=== PATIENT | female | born 1955 | race Caucasian/White ===

== ENCOUNTER → 2018-08-08 | Outpatient (CLI) | payer OTHER ==
[2018-08-08] VITALS (9 sets, daily range): BP systolic 106–178; BP diastolic 1–74
[~2018-08-08] VITALS: Ht 162.6 cm; Wt 106.6 kg
[~2018-08-08] MED LIST: CHOL10003 PO; COCO1000 PO; CONTRAST GIVEN. MC PRN; ESCITALOPRAM OX10 MG PO; EZET10TA18 PO; HEPARIN for ARTERIAL LINE 1,500 ML ONE; HEPARIN for IV BOLUS 10,000 UNIT/10 ML VIAL. IART ONE; HEPARIN for IV BOLUS 10,000 UNIT/10 ML VIAL. ONE; IODIXANOL 320 MG/ML 100 ML VIAL. IART ONE; IODIXANOL 320 MG/ML 100 ML VIAL. ONE; LIDOCAINE 1% PF 2 ML VIAL. INJ ONE; LIDOCAINE 1% PF 2 ML VIAL. ONE; MIDAZOLAM HCL/PF 2 MG/2 ML VIAL. IV ONE; MIDAZOLAM HCL/PF 2 MG/2 ML VIAL. ONE; NITROGLYCERIN 200 MCG/2 ML SYRINGE FOR CATH/VASC LAB. IART ONE; NITROGLYCERIN 200 MCG/2 ML SYRINGE FOR CATH/VASC LAB. ONE; VERAPAMIL 5 MG/2 ML VIAL. IART ONE; VERAPAMIL 5 MG/2 ML VIAL. ONE; fentaNYL PF VIAL 100 MCG/2 ML VIAL IV ONE; fentaNYL PF VIAL 100 MCG/2 ML VIAL ONE
[2018-08-08 08:52] LABS: HEMATOCRIT 45.6 % (36.0-47.0); HEMOGLOBIN 15.9 g/dL (12.0-15.5); RED BLOOD COUNT 5.04 x10^6/uL (3.50-5.40); RED CELL DISTRIBUTION WIDTH 12.9 % (11.5-14.5); WHITE BLOOD COUNT 7.2 x10^3/uL (4.0-11.0)
[2018-08-08 09:17] LABS: CALCIUM 9.2 mg/dL (8.5-10.1); CREATININE 0.8 mg/dL (0.6-1.0); GFR 72.9; POTASSIUM 4.1 mmol/L (3.5-5.1); PROTHROMBIN TIME PATIENT 12.6 SEC (11.7-14.0)
--- NOTE | 2018-08-08 10:40 | CARD ---
MR#: [id number] Date of Study: 08/08/2018 Ordering Physician: TAYLER GARCIA, Referring Physician: TAYLER GARCIA, Tech: Fior Stroud RTR APPROVED REPORT Technologist: Fior Stroud RTR Nurse: Delia Rendon RN Procedure(s) performed: Moderate Sedation time: 23 minutes [facility], Coronary angiography HISTORY The patient is a 62 year-old female with a history of : hypertension, dyslipidemia. INDICATION The indication(s) include : stable angina , dyspnea. PROCEDURE NARRATIVE INFORMED CONSENT: After explaining the risks and benefits of the procedure and alternatives, informed consent was obtained. The patient was brought electively to the cardiac catheterization lab. A timeout was performed confi rming the patient's name, date of , procedure, and site of procedure. All necessary personnel w ere wearing the appropriate protective equipment and radiation monitor devices. (See nursing notes for medications administered). ACCESS: The right wrist was sterilely prepped and draped in the usual fashion. The right wrist was infiltrat ed with 1 mL of 2% lidocaine for subcutaneous anesthesia. A 6 Vietnamese Terumo glide sheath was inserte d into the right radial artery without difficulty. CORONARY ANGIOGRAPHY: Right and left coronary angiography was performed using a 6Fr TIG 4.0 catheter. Left ventricular en d diastolic pressure was obtained with a TIG catheter and pullback was performed after left ventricul ography. All catheter exchanges and advancements were performed over a guidewire. CLOSURE: At case completion the right radial sheath was removed and a Terumo radial band was applied with 13 m l of air. COMPLICATIONS: The patient tolerated the procedure well and there were no immediate complications. FINDINGS: HEMODYNAMICS: LVEDP 8 mm Hg No gradient on LV to aortic pullback. AO: 128/78 LEFT VENTRICULOGRAM: EF 55% Anterobasal: Normal. Anterolateral: Normal Apical: Normal Diaphragmatic: Normal Posterobasal: Normal CORONARY ANGIOGRAPHY: LM is a large caliber vessel with normal angiographic appearance. LAD is a large caliber vessel with a mid 30% stenosis. Ramus is a moderate caliber vessel with normal angiographic apeparance. LCx is a large caliber dominant vessel with proximal 30% stenosis. OM1 is a moderate caliber vessel with normal angiographic appearance. LPDA is a moderate caliber vessel with normal angiographic appearance. RCA is a small caliber non-dominant vessel with normal angiographic appearance. Conclusion 1. Mild non-obstructive coronary disease. 2. Normal LV function. Recommendations Aggressive Medical Therapy Signed by : Tayler Garcia, Electronically Approved : 08/08/2018 10:40:13
== END | disposition home or self-care (01) ==
LOC: CCL 08:14
PROVIDERS: ATTEND Internal Medicine Cardiovascular Disease
DX: I25.118 Atherosclerotic heart disease of native coronary artery with other forms of angina pectoris (principal); I10 Essential (primary) hypertension; E78.5 Hyperlipidemia, unspecified; Z91.030 Bee allergy status
CPT/HCPCS: 36415; 80048; 85027; 85610; 93458; 99152; 99153; C1769; C1892; J1644; J2250; J3010; J3490; Q9967

== ENCOUNTER → 2020-08-05 | Outpatient (CLI) | payer OTHER ==
[2018-08-08 12:20] VITALS: BP 122/66
[~2020-08-05] MED LIST changes: -CONTRAST GIVEN. MC PRN; -EZET10TA18 PO; +EZET10TA20 PO; -HEPARIN for ARTERIAL LINE 1,500 ML ONE; -HEPARIN for IV BOLUS 10,000 UNIT/10 ML VIAL. IART ONE; -HEPARIN for IV BOLUS 10,000 UNIT/10 ML VIAL. ONE; -IODIXANOL 320 MG/ML 100 ML VIAL. IART ONE; -IODIXANOL 320 MG/ML 100 ML VIAL. ONE; -LIDOCAINE 1% PF 2 ML VIAL. INJ ONE; -LIDOCAINE 1% PF 2 ML VIAL. ONE; -MIDAZOLAM HCL/PF 2 MG/2 ML VIAL. IV ONE; -MIDAZOLAM HCL/PF 2 MG/2 ML VIAL. ONE; -NITROGLYCERIN 200 MCG/2 ML SYRINGE FOR CATH/VASC LAB. IART ONE; -NITROGLYCERIN 200 MCG/2 ML SYRINGE FOR CATH/VASC LAB. ONE; -VERAPAMIL 5 MG/2 ML VIAL. IART ONE; -VERAPAMIL 5 MG/2 ML VIAL. ONE; -fentaNYL PF VIAL 100 MCG/2 ML VIAL IV ONE; -fentaNYL PF VIAL 100 MCG/2 ML VIAL ONE
--- NOTE | 2020-08-05 13:45 | KCIC ---
EXAM: MRI RIGHT KNEE DATE: 08/05/2020 10:41 AM CLINICAL INDICATION: RIGHT KNEE PAIN -right knee pain around patella since a jump 5 days ago. COMPARISON: None. TECHNIQUE: Multiplanar, multisequence MRI of the right knee was performed without contrast. FINDINGS: Small right knee joint effusion. Small Umana's cyst. Small synovial cyst arising from the popliteus hiatus. ACL and PCL are intact. Mild increased signal about the MCL consistent with low-grade strain or reactive change. Fibular collateral ligament, biceps femoris, IT band and popliteus are intact, normal in signal and morphology. Extensor mechanism is intact. Essentially neutral patellar tracking. Medial meniscus: There is free edge blunting of the body to the posterior horn consistent with radial tear. Lateral meniscus: Intact A 2 cm segment of full-thickness defect is seen at the radial aspect of the medial femoral condyle with associated subchondral edema. Associated chondromalacia and subchondral edema is also seen at the medial tibial plateau. Tricompartmental osteophytes are seen. High-grade chondral thinning of the medial patellar facet without subchondral edema. Suprapatellar fat pad edema may be seen with anterior knee pain/impingement. IMPRESSION: 1. Right knee joint osteoarthritis with medial compartment chondral effacement, subchondral edema and tricompartmental osteophytes. 2. Radial type tear body-posterior horn medial meniscus. 3. Suprapatellar fat pad edema may be seen with anterior knee pain/impingement. 4. Small Umana's cyst. Small synovial cyst arising from the popliteus hiatus. Electronically signed by: Arcadio Butt MD (08/05/2020 1:42 PM) [id number]
== END ==
LOC: KCIC MRI 09:44
PROVIDERS: ATTEND Family Medicine
DX: M17.11 Unilateral primary osteoarthritis, right knee (principal); M71.38 Other bursal cyst, other site; M71.21 Synovial cyst of popliteal space [Baker], right knee; M25.461 Effusion, right knee
CPT/HCPCS: 73721

== ENCOUNTER → 2021-12-19 | Outpatient (CLI) | payer MEDICARE, OTHER ==
[2018-08-08 12:20] VITALS: BP 122/66
--- NOTE | 2021-12-19 11:05 | RAD ---
XR BONE LENGTH History: Right knee osteoarthritis. Comparison: 08/16/2020 Technique: AP views of the right lower extremity from hip to ankle obtained with markers in place. Findings: Measurements made in the vertical axis from the femoral head to the medial femoral condyle and medial femoral condyle to the tibial plafond and. Right femur length: 54.0 cm. Right tibia length: 39.3 cm. Right lower extremity hip to ankle: 93.3 cm. Severe medial tibiofemoral compartment joint space narrowing. Medial and lateral compartment osteophy te formation. Mild degenerative changes at the right hip. Several pelvic surgical clips. Impression: 1. Degenerative changes of the right knee greatest at the medial tibiofemoral compartment. 2. Leg lengths as above. Electronically signed by: Jim Reis MD (12/19/2021 11:03 AM) [id number]
--- NOTE | 2021-12-19 11:58 | RAD ---
Exam Date: 12/19/2021 8:30 AM MRI RIGHT LOWER EXTREMITY JOINT WITHOUT Indication: Reason: oesteoarthritis of right knee / Spl. Instructions: Jones [employer] Nephew Carmenza campos otocol / History: . TECHNIQUE: A single proton density nonfat saturated sagittal series of the knee is submitted for revi ew. FINDINGS: Evaluation is limited due to only a single series provided. Complex tearing is seen involving the posterior horn of the medial meniscus. Lateral meniscus is wit hout appreciable focal abnormality. The anterior cruciate ligament, posterior cruciate ligament, and patellofemoral extensor mechanism ar e without appreciable focal abnormality. Full-thickness chondral loss is seen in the medial compartment. Partial thickness chondral loss is s een in the patellofemoral compartment. No chondral loss is appreciated in the lateral compartment. Moderate osteophytes are noted. Physiologic joint fluid is noted. IMPRESSION: Single series limits evaluation. Complex tearing of the medial meniscus noted, with full-thickness chondral loss in the medial compart ment. Images are submitted for orthopedic review. Electronically signed by: Nilo Norman MD (12/19/2021 11:56 AM) [id number]
== END ==
LOC: MRI 07:57
PROVIDERS: ATTEND Orthopaedic Surgery
DX: S83.231A Complex tear of medial meniscus, current injury, right knee, initial encounter (principal); M17.11 Unilateral primary osteoarthritis, right knee; M16.11 Unilateral primary osteoarthritis, right hip; M25.761 Osteophyte, right knee; M25.861 Other specified joint disorders, right knee; X58.XXXA Exposure to other specified factors, initial encounter; Y93.89 Activity, other specified; Y92.89 Other specified places as the place of occurrence of the external cause; Y99.8 Other external cause status
CPT/HCPCS: 73721; 77073

== ENCOUNTER → 2022-01-16 | Outpatient (CLI) | payer MEDICARE, OTHER ==
[~2022-01-16] MED LIST changes: +ASPI325T11 PO; +ASPI325T8 PO; +CHOL100014 PO; +CHRO1000 PO; +CIDE600C PO; +CINN500C2 PO; +ELDE1CAP PO; +FERR325T14 PO; +FURO20TA3 PO; +HAWT565C PO; +IBUP1TAB12 PO; +LISI20TA18 PO; +MULT-121 PO; +OXYC5TAB4 PO; +TURM500C4 PO; +VITA1TAB19 PO; +[UNRECOGNIZED DRUG - OTHER] PO
[2022-01-16 09:49] LABS: BASO # 0.1 x10^3/uL (0.0-0.2); BASO % 1 % (0-3); EOS # 0.3 x10^3/uL (0.0-0.7); EOS % 4 % (0-3); HEMATOCRIT 46.8 % (36.0-47.0); HEMOGLOBIN 15.3 g/dL (12.0-15.5); LYMPH # 1.5 x10^3/uL (1.0-4.8); LYMPH % 20 % (24-48); MEAN CORPUSCULAR HEMOGLOBIN 30 pg (25-35); MEAN CORPUSCULAR HGB CONC 33 g/dL (31-37); MEAN CORPUSCULAR VOLUME 91 fL (79-100); MONO # 0.7 x10^3/uL (0.0-1.1); MONO % 9 % (0-9); NEUT # 4.9 x10^3/uL (1.8-7.7); NEUT % 66 % (31-73); PLATELET COUNT 289 x10^3/uL (140-400); RED BLOOD COUNT 5.16 x10^6/uL (3.50-5.40); RED CELL DISTRIBUTION WIDTH 13.2 % (11.5-14.5); WHITE BLOOD COUNT 7.4 x10^3/uL (4.0-11.0)
[2022-01-16 10:04] LABS: CALCIUM 9.2 mg/dL (8.5-10.1); CREATININE 0.7 mg/dL (0.6-1.0); POTASSIUM 4.2 mmol/L (3.5-5.1)
[2022-01-17 05:14] LABS: HEMOGLOBIN A1C 6.7 % (4.8-5.6)
== END ==
LOC: SURGPAT 08:00
PROVIDERS: ATTEND Orthopaedic Surgery
DX: Z01.812 Encounter for preprocedural laboratory examination (principal); M17.11 Unilateral primary osteoarthritis, right knee
CPT/HCPCS: 36415; 80048; 82040; 82306; 83036; 85025; 85610; 85651; 85730; 87641

== ENCOUNTER → 2022-01-27 | Outpatient (CLI) | payer MEDICARE, OTHER ==
[2022-01-18 10:27] VITALS: BP 120/77
== END ==
LOC: LAB 10:00
PROVIDERS: ATTEND Orthopaedic Surgery
DX: Z01.812 Encounter for preprocedural laboratory examination (principal); Z20.822 Contact with and (suspected) exposure to COVID-19
CPT/HCPCS: U0003

== ENCOUNTER 2022-01-30 05:58 | Inpatient (IN) | payer MEDICARE, OTHER ==
[2022-01-18 10:27] VITALS: BP 120/77
[~2022-01-30] VITALS: Ht 162.6 cm; Wt 109.0 kg
[~2022-01-30 05:58] MED LIST changes: -ASPI325T11 PO; -OXYC5TAB4 PO
[2022-01-30] MEDS ORDERED: ACETAMINOPHEN 500 MG TABLET PO PRN (06:00)
[2022-01-30] MEDS ORDERED: MELOXICAM 7.5 MG TABLET PO PRN (06:00)
[2022-01-30] MEDS ORDERED: GABAPENTIN 300 MG CAPSULE. PO PRN (06:00)
[2022-01-30] MEDS ORDERED: TV=62ml MORPHINE 5 MG, KETOROLAC 30 MG, ROPIV, EPI INT ART ONE (06:00)
[2022-01-30] MEDS ORDERED: TRANEXAMIC ACID 1,000 MG in IV NS 50ML -- 1ST BAG INJ ONE (06:00)
[2022-01-30 06:22] VITALS: BP 132/63
[2022-01-30] MEDS ORDERED: ONDANSETRON PF 4 MG/2 ML VIAL. ONE (06:25)
[2022-01-30] MEDS ORDERED: DEXAMETHASONE SOD PHOS 4 MG/ML VIAL ONE (06:25)
[2022-01-30] MEDS ORDERED: LIDOCAINE 2% PF 5 ML VIAL. ONE (06:25)
[2022-01-30] MEDS ORDERED: PROPOFOL 10 MG/ML (20ML) VIAL. IV ONE (06:25)
[2022-01-30] MEDS ORDERED: TRANEXAMIC ACID in NS IVPB 100 ML ONE (07:09)
[2022-01-30] MEDS ORDERED: fentaNYL PF VIAL 250 MCG/5 ML VIAL ONE (07:30)
[2022-01-30] MEDS ORDERED: TRANEXAMIC ACID 1,000 MG in IV NS 50ML -- 2ND BAG INJ ONE (08:00)
[2022-01-30] MEDS ORDERED: fentaNYL PF VIAL 100 MCG/2 ML VIAL IVP PRN ×3 (08:15→10:30)
[2022-01-30] MEDS ORDERED: diphenhydrAMINE 50 MG/ML VIAL IVP PRN (08:15)
[2022-01-30] MEDS ORDERED: CALCIUM CARBONATE 500 MG TAB.CHEW PO PRN (08:15)
[2022-01-30] MEDS ORDERED: METOCLOPRAMIDE HCL 10 MG/2 ML VIAL. IVP PRN (08:15)
[2022-01-30] MEDS ORDERED: ZOLPIDEM 5 MG TABLET. PO PRN (08:15)
[2022-01-30] MEDS ORDERED: 0.9 % SODIUM CHLORIDE 10 ML DISP.SYRIN. IV PRN (08:15)
[2022-01-30] MEDS ORDERED: IV DEXTROSE 5% 250 ML BAG. IV PRN (08:15)
[2022-01-30] MEDS ORDERED: IV NORMAL SALINE 1000ML BAG 1,000 ML IV SCH (08:15)
[2022-01-30] MEDS ORDERED: PROCHLORPERAZINE 5 MG TABLET. PO PRN (08:15)
[2022-01-30] MEDS ORDERED: DEXTROSE 50% 25 GM / 50ML DISP.SYRIN. IV PRN (08:15)
[2022-01-30] MEDS: SENNOSIDES/DOCUSATE 8.6/50MG TABLET. PO SCH (09:00)
[2022-01-30] MEDS: MULTIVITAMIN with MINERAL TABLET. PO SCH (09:00)
[2022-01-30] MEDS ORDERED: SEVOFLURANE > 120 MINUTES. IH ONE (09:10)
--- NOTE | 2022-01-30 09:54 | HP ---
DATE OF SERVICE: 01/30/2022 ADMIT DATE: 01/30/2022 She is here preoperatively. BRIEF HISTORY: The patient is a 66-year-old female here today with complaints of continued and ongoing right knee pain. She has undergone multiple treatments for this including injections, ice, elevation, anti-inflammatories, modifying activities and therapies, etc. Nothing is helping significantly. Therefore, at this point, she wishes to undergo a total knee arthroplasty. No other complaints today. PAST MEDICAL HISTORY: Remarkable for hyperlipidemia as well as coronary artery disease. Also, renal calculi, cervical degenerative joint disease, obesity. PAST SURGICAL HISTORY: Lithotripsy as well as cholecystectomy and appendectomy. FAMILY HISTORY: Remarkable for cardiac disease as well as COPD. SOCIAL HISTORY: The patient has not used tobacco in the last 10 years. Denies any alcohol use at all at this point. She is retired at this point. She is . ALLERGIES: HER MEDICATION ALLERGIES ARE NICKEL. MEDICATIONS: Multiple, vitamins as well as furosemide, occasional use of hydrocodone, atorvastatin as well as occasional use of an antibiotic for the renal issues. PHYSICAL EXAMINATION: GENERAL: She is alert and oriented x 3. She is answering questions appropriately today. HEENT: Within normal limits. No abnormalities noted at this point. HEART: Regular rate and rhythm with no murmurs. No issues at this point. LUNGS: Clear to auscultation in all ware. SKIN: Intact without any lesions or rashes. EXTREMITIES: The exam of the knee reveals there to be a mild effusion. Range of motion is 0 up to 115 degrees of flexion. A lot of apprehension of the patellofemoral joint, pain with palpation both medial and lateral joint lines with positive Apley's test in the medial and lateral compartments. No instability in the varus, valgus or AP plane at this point. No atrophy of musculature. Distal neurovascular status appears to be fully intact at this point. No other abnormalities are noted at this point. IMPRESSION: Degenerative joint disease, right knee. History of cardiac disease. PLAN: At this time, she has already been cleared by her physicians. At this point for right total knee arthroplasty, she will be evaluated by Anesthesia and then we will proceed with a right total knee replacement. She understands the risks, complications as well as benefits and expectations of that surgery, postoperative protocol and followup. RAMONITA/BRITTNEY/NEIL DR: Mary TID: [id number]
[2022-01-30] MEDS ORDERED: HYDROmorphone 2 MG/ML INJ. ONE (10:11)
[2022-01-30] MEDS: HYDROmorphone 2 MG/ML INJ. IVP PRN ×4 (10:23→11:34)
[2022-01-30] MEDS ORDERED: IV RINGERS,LACTATED 1000ML 1,000 ML IV SCH (10:30)
[2022-01-30] MEDS ORDERED: PROCHLORPERAZINE 10 MG/2 ML VIAL. IVP PRN (10:30)
[2022-01-30] MEDS ORDERED: MORPHINE SULFATE 2 MG/ML INJ. IVP PRN (10:30)
--- NOTE | 2022-01-30 10:49 | RAD ---
Exam: XR KNEE_RT 1-2 VIEWS History: Postop knee arthroplasty. Comparison: 12/19/2021 Findings: There are postsurgical features from right total knee arthroplasty. Distal femur and proximal tibial components appear well seated without evidence of complication. Normal alignment. No fractures identi fied. There are postsurgical changes to the articular side of the patella. Subcutaneous and intra-art icular air and edema consistent with recent instrumentation. Impression: 1. Right total knee arthroplasty without evidence of complication. Electronically signed by: Jim Reis MD (01/30/2022 10:46 AM) [id number]
--- NOTE | 2022-01-30 11:01 | OP ---
DATE OF SURGERY: 01/30/2022 PREOPERATIVE DIAGNOSIS: Severe degenerative joint disease, right knee. POSTOPERATIVE DIAGNOSIS: Severe degenerative joint disease, right knee. PROCEDURE: Right total knee arthroplasty. SURGEON: Dc Rebollar Jr, DO GLOVE MAKER: DENZEL [place] COMPONENTS: Size 4 tibia, size 5 femur, 32 patella and this is a Jones and Nephew total knee replacement. DESCRIPTION OF PROCEDURE: The patient was taken to the operative suite, given a general anesthetic. Right lower extremity was then prepped and draped in a sterile fashion. After exsanguination, tourniquet was inflated. Incision was made through skin and subcutaneous tissues down to the extensor mechanism. Superficial bleeding was coagulated using Bovie knife. Upon medial parapatellar incision, the patella was everted, measured and cut to the appropriate size. There were noted to be severe changes in all compartments of the knee. Soft tissue was released from the proximal tibia due to a slight contracture along the area of the medial capsule. Following this, after the patella was cut, 32 was most appropriate size; therefore, the drill was placed through the drill guide for positioning and the trial poly was placed. The knee was then taken into a flexed position. Retractors were placed medially and laterally and the guide was then affixed to the distal femur, held with pins, 2 anteriorly and 2 distally. The distal pins were then removed and the cut was made on the distal femur. This was noted to be a good flush cut. The trial was then removed. The cutting guide was then placed on the distal femur using the previous drill pins on the distal femur for rotation along the axis. After this was fixed, the anterior, posterior and the chamfer cuts were then made. This guide was then removed in its entirety and medial and lateral meniscal remnants were removed. The PCL was stable. The ACL was removed. After retractors were placed medially, laterally and posteriorly, the tibial guide was then placed in appropriate position and the tibia was cut. The trials were then placed. This was taken through range of motion. This was very tight in both flexion and extension, but were equal. Therefore, after the guide was placed back, 2 more millimeters were cut off the tibia and then the trials were placed again and this was noted to have excellent rotation, full extension, flexion up to 125 degrees of flexion without any instability or subluxation. Proper tracking in the patellofemoral joint was noted at this point. Therefore, the drill was placed through the femoral component for positioning of the femur. Osteophytes were then subsequently removed from the femoral side of the joint. The same was done on the tibial side of the joint. This was marked for rotation and then the drill and the guide were placed for the keel on the tibia. The capsule was then Bovied and the capsule was noted to be in good position and then following this, this was thoroughly irrigated. Cement was then mixed on the back table. Cement was placed on cut surfaces. Tibia was impacted first, followed by the femur. This was held in extension with a 9 mm poly. After this was noted to be stable, this hardening of cement was noted and after this, excess cement was removed. The trial was then subsequently removed. The actual poly was placed. This was noted to be very stable and secured within the tibial component. This was taken through full range of motion again with excellent stability in the AP plane as well as varus and valgus plane with proper tracking. The medial parapatellar was then closed in a running fashion and also reinforced along the area of the vastus medialis region. Through range of motion, this was noted to be stable and secured and tracking appropriately. Tourniquet was deflated prior to complete closure. There was no excessive bleeding noted at that point and that had been irrigated prior to closure with the use of Betadine. At the end of that, the capsule was infiltrated with local, superficial tissue and skin was reapproximated. Sterile dressing was applied. The patient was then taken from the operative bed to the postoperative bed, taken to the PACU in stable condition. BOB/NEGRO DR: Mary TID: [id number]
[2022-01-30] MEDS: ONDANSETRON ODT 4 MG TAB.RAPDIS. PO SCH ×2 (12:00→21:44)
[2022-01-30] MEDS: ONDANSETRON PF 4 MG/2 ML VIAL. IVP SCH ×2 (13:27→16:43)
[2022-01-30] MEDS: MORPHINE SULFATE 2 MG/ML INJ. IVP PRN ×2 (13:28→16:37)
[2022-01-30] MEDS: HYDROcodone/APAP 5/325MG 1 TAB TABLET PO PRN ×2 (17:23→21:43)
[2022-01-30 19:00] VITALS: BP 117/55
[2022-01-30 23:00] VITALS: BP 116/63
[2022-01-31] VITALS (7 sets, daily range): BP systolic 102–148; BP diastolic 55–66
[2022-01-31] MEDS: HYDROcodone/APAP 5/325MG 1 TAB TABLET PO PRN (02:52)
[2022-01-31] MEDS: ONDANSETRON PF 4 MG/2 ML VIAL. IVP SCH ×2 (05:13)
[2022-01-31] MEDS: traMADol 50 MG TABLET PO SCH ×3 (05:55→17:47)
[2022-01-31] MEDS: GABAPENTIN 100 MG CAPSULE. PO SCH ×3 (05:55→22:18)
[2022-01-31] MEDS: ONDANSETRON ODT 4 MG TAB.RAPDIS. PO SCH ×2 (05:56)
[2022-01-31] MEDS ORDERED: MAGNESIUM HYDROXIDE 2,400 MG/30 ML ORAL.SUSP. PO PRN (06:00)
[2022-01-31 06:13] LABS: HEMATOCRIT 39.4 % (36.0-47.0); HEMOGLOBIN 13.2 g/dL (12.0-15.5)
[2022-01-31] MEDS: MORPHINE SULFATE 2 MG/ML INJ. IVP PRN ×2 (07:55→13:59)
[2022-01-31] MEDS: ACETAMINOPHEN 500 MG TABLET PO SCH ×3 (07:56→17:48)
[2022-01-31] MEDS: SENNOSIDES/DOCUSATE 8.6/50MG TABLET. PO SCH (07:56)
[2022-01-31] MEDS: ASPIRIN 325 MG TABLET PO SCH ×2 (07:56→09:17)
[2022-01-31] MEDS: FERROUS SULFATE 325 MG TABLET. PO SCH ×3 (07:56→17:00)
[2022-01-31] MEDS: MULTIVITAMIN with MINERAL TABLET. PO SCH ×2 (07:56→09:17)
--- NOTE | 2022-01-31 08:00 | NUR ---
Omaira is complaining of throbbing pain in her operative leg. doesn't want to get upat this time because of pain. she has good motion sensation and pulses bilateral lower extremities. medicated with morphine. iv for pain
--- NOTE | 2022-01-31 10:00 | NUR ---
feeling slightly better. Her pain is down to a "7". she has several allergies to pain medication. cherise causes a headache but can take it if it helps the pain.OT is working with her now.
[2022-01-31] MEDS ORDERED: ONDANSETRON PF 4 MG/2 ML VIAL. IVP PRN (12:00)
--- NOTE | 2022-01-31 12:00 | NUR ---
given scheduled tramadol. tolerating lunch with no complaints of nausea or emesis. after her therapy her pain is a "7". tolerated therapy fair
[2022-01-31] MEDS: ONDANSETRON ODT 4 MG TAB.RAPDIS. PO PRN (12:24)
[2022-01-31] MEDS: oxyCODONE IR 5 MG TABLET PO PRN ×2 (12:25→20:06)
--- NOTE | 2022-01-31 15:00 | NUR ---
Omaira is complaining of severe pain after 2nd therapy. medicated with morphine
[2022-01-31] MEDS ORDERED: BISACODYL 10 MG SUPP.RECT. PR PRN (16:00)
[2022-01-31] MEDS ORDERED: ASPI325T11 PO (16:35)
--- NOTE | 2022-01-31 17:15 | NUR ---
dr. Rebollar called. she has a temp 102.5 received orders for Tylenol and respiratory therapy
[2022-01-31] MEDS ORDERED: ALBUTEROL SULFATE 2.5 MG/3 ML NEBU. NEB ONE (18:00)
--- NOTE | 2022-01-31 18:06 | PATHOLOGY ---
[facility] Accession Number: [id number] . 01 Material submitted: . knee - PATELLA BONE, TISSUE CONTENTS. Modifiers: right . 01 Clinical history: . R OSTEOARTHRITIS OF KNEE TOTAL RIGHT KNEE ARTHROPLASTY . 02 Diagnosis: Bone and soft tissue "right knee" (total arthroplasty): - Severe osteoarthritis. - Negative for malignancy. (MLK:bill; 01/31/2022) MBR 01/31/2022 1601 Local . 02 Electronically signed: . Dakota Saldaña MD, Pathologist NPI- [id number] . 01 Gross description: . The specimen is received in formalin, labeled "Omaira Cedeno, patella bone, tissue contents". The site is further designated on the requisition as "right total knee". Received are multiple segments of bone, including the tibial plateau, admixed with soft tissue measuring 9.8 x 9.3 x 2.2 cm in aggregate dimensions. Meniscus is not identified. The articular surfaces are smooth to granular in appearance with evidence of eburnation. The specimen is submitted representatively in cassette A1, following decalcification. (CAA; 01/30/2022) QAC/QAC 01/31/2022 1600 Local . 02 Pathologist provided ICD-10: M17.11 . 02 CPT . 442410, [id number] Specimen Comment: A courtesy copy of this report has been sent to [phone] Specimen Comment: Report sent to Performed at: 01 [facility] [address] [id number] MD Deric Soares MD Phone: [phone] Performed at: 02 [facility] [address] [place], [place] [id number] MD Butch Magaña MD Phone: [phone]
--- NOTE | 2022-01-31 21:11 | PN ---
DATE: 01/31/2022 This is postoperative day #1 for the patient. Dressings are intact. There is no excessive bleeding noted. There is no significant swelling to the lower extremity at this point. No signs or symptoms of DVT. No signs or symptoms of infection. She has completed antibiotics at this point and will continue with DVT prophylaxis. She is not complaining of significant pain when she is ambulating. Says today is a little bit worse than yesterday, although she did lot more than she thought she was going to do yesterday as far as standing and walking around in the room. We will continue with DVT prophylaxis. Continue with weightbearing as tolerated with the walker. We will see about her possibly discharging home tomorrow. RAMONITA/AVERY DR: Mary TID: [id number]
[2022-01-31] MEDS: ASPIRIN ENTERIC COATED 325 MG TABLET.DR. PO SCH (22:18)
[2022-01-31] MEDS: POLYETHYLENE GLYCOL 3350 17 GM PACKET. PO SCH (22:19)
[2022-02-01] MEDS: oxyCODONE IR 5 MG TABLET PO PRN (02:36)
[2022-02-01] MEDS: ONDANSETRON ODT 4 MG TAB.RAPDIS. PO PRN ×2 (02:37→12:50)
[2022-02-01] MEDS: ACETAMINOPHEN 500 MG TABLET PO SCH ×4 (02:37→21:36)
[2022-02-01 03:21] VITALS: BP 129/59
[2022-02-01] MEDS: GABAPENTIN 100 MG CAPSULE. PO SCH ×3 (05:58→22:00)
[2022-02-01] MEDS: traMADol 50 MG TABLET PO SCH ×4 (06:00→18:00)
[2022-02-01 07:00] VITALS: BP 138/64
[2022-02-01] MEDS: FERROUS SULFATE 325 MG TABLET. PO SCH ×2 (07:47→15:24)
[2022-02-01 08:03] LABS: HEMATOCRIT 36.8 % (36.0-47.0); HEMOGLOBIN 12.4 g/dL (12.0-15.5)
[2022-02-01] MEDS: FUROSEMIDE 20 MG TABLET PO SCH (09:00)
[2022-02-01 11:00] VITALS: BP 121/57
[2022-02-01] MEDS: ASPIRIN ENTERIC COATED 325 MG TABLET.DR. PO SCH ×2 (12:50→21:36)
[2022-02-01] MEDS: LISINOPRIL 20 MG TABLET PO SCH (12:50)
[2022-02-01] MEDS ORDERED: CYCLOBENZAPRINE 10 MG TABLET. PO PRN (13:15)
[2022-02-01 15:00] VITALS: BP 124/53
[2022-02-01] MEDS: SENNOSIDES/DOCUSATE 8.6/50MG TABLET. PO SCH (15:55)
[2022-02-01] MEDS: KETOROLAC 30 MG/ML VIAL. IVP PRN ×3 (15:55→21:36)
--- NOTE | 2022-02-01 18:34 | NUR ---
Rachel was able to tolerate Toradol IV. pain is down to "4". she was able to tolerate supper this evening. she was given supp and Reglan iv late this am. She passed large amount of gas. states she is feeling better. Addendum: 02/01/22 at 1836 by SUGEY CALDERON RN she will try flexeril later. she has been afebrile this shift.
[2022-02-01 19:00] VITALS: BP 112/53
[2022-02-01] MEDS: POLYETHYLENE GLYCOL 3350 17 GM PACKET. PO SCH (21:35)
[2022-02-01 23:06] VITALS: BP 121/53
[2022-02-02] MEDS: traMADol 50 MG TABLET PO SCH ×3 (00:53→12:00)
[2022-02-02] MEDS: ACETAMINOPHEN 500 MG TABLET PO SCH ×2 (03:00→08:52)
[2022-02-02 03:15] VITALS: BP 131/62
[2022-02-02 05:56] LABS: HEMATOCRIT 34.7 % (36.0-47.0); HEMOGLOBIN 11.8 g/dL (12.0-15.5)
[2022-02-02] MEDS: GABAPENTIN 100 MG CAPSULE. PO SCH ×2 (06:00→14:00)
[2022-02-02 07:00] VITALS: BP 134/64
[2022-02-02] MEDS: ASPIRIN 325 MG TABLET PO SCH (08:00)
[2022-02-02] MEDS: MULTIVITAMIN with MINERAL TABLET. PO SCH (08:51)
[2022-02-02] MEDS: ASPIRIN ENTERIC COATED 325 MG TABLET.DR. PO SCH (08:51)
[2022-02-02] MEDS: FUROSEMIDE 20 MG TABLET PO SCH (08:52)
[2022-02-02] MEDS: FERROUS SULFATE 325 MG TABLET. PO SCH (08:53)
[2022-02-02] MEDS: SENNOSIDES/DOCUSATE 8.6/50MG TABLET. PO SCH (08:53)
[2022-02-02] MEDS: LISINOPRIL 20 MG TABLET PO SCH (08:54)
[2022-02-02 11:00] VITALS: BP 118/50
--- NOTE | 2022-02-02 11:41 | PDOC2 ---
CONSULT Date of Consult Date of Consult DATE: 02/02/22 TIME: 11:24 Reason for Consult Reason for Consult: Medical management and discharge Referring Physician Referring Physician: Dr. Dc Rebollar Identification/Chief Complaint Chief Complaint Right knee osteoarthritis Source Source: Patient History of Present Illness Reason for Visit: Ms Cedeno is a 66yo female with PMHx HTN, nephrolithiasis who was admitted for elective right total knee arthroplasty for progressive degenerative osteoarthritis failed outpatient injections ice elevation anti-inflammatories and therapy. Postoperatively she did have pain but had a lot of nausea and vomiting related to opioids and was responsive to Toradol. For her high blood pressure she takes lisinopril and furosemide. No numbness or tingling no significant swelling. No shortness of breath or chest pain. She did have difficulty getting into the car with physical therapy and has been recommended to have home health prior to going to outpatient rehab due to this. Labs on my review with hemoglobin 13.2 down to 11.8 postoperatively negative COVID-19 rapid antigen Knee radiograph on interpretation shows a right total knee arthroplasty without any local complications some subcutaneous intra-articular air expected postoperatively. Past Medical History Cardiovascular: HTN Past Surgical History Past Surgical History Lithotripsy Past Surgical History: Cholecystectomy, Total knee replacement (Right), Tubal Ligation Family History Family History: Coronary Artery Disease (Maternal and paternal side), High Cholestrol, Hypertension Social History Social History Retired event manager. Lives with her family at home No ALCOHOL: none Drugs: None Lives: with Family Domestic Violence: Neg Current Medications Current Medications Current Medications Morphine Sulfate 5 mg/Ketorolac Tromethamine 30 mg/Ropivacaine 60 ml/Epinephrine HCl 0.5 mg/ Miscellaneous 63 ml @ 63 mls/hr 1X PERIOP ONCE INT ART Last administered on 01/30/22at 07:44; Start 01/30/22 at 06:00; Stop 01/30/22 at 06:59; Status DC Meloxicam (Mobic) 15 mg 1X PREOP PRN PO PRIOR TO PROCEDURE Last administered on 01/30/22at 06:34; Start 01/30/22 at 06:00; Stop 01/30/22 at 18:00; Status DC Gabapentin (Neurontin) 600 mg 1X PREOP PRN PO PRIOR TO PROCEDURE Last administered on 01/30/22at 06:33; Start 01/30/22 at 06:00; Stop 01/30/22 at 18:00; Status DC Acetaminophen (Tylenol) 1,000 mg 1X PREOP PRN PO PRIOR TO PROCEDURE Last administered on 01/30/22at 06:35; Start 01/30/22 at 06:00; Stop 01/30/22 at 18:00; Status DC Cefazolin Sodium/ Dextrose 50 ml @ 100 mls/hr 1X PREOP PRN IV PRIOR TO PROCEDURE Last administered on 01/30/22at 08:03; Start 01/30/22 at 06:00; Stop 01/30/22 at 18:00; Status DC Tranexamic Acid 50 ml @ 50 mls/hr 1X PERIOP ONCE INJ Last administered on 01/30/22at 07:44; Start 01/30/22 at 06:00; Stop 01/30/22 at 06:59; Status DC Tranexamic Acid 50 ml @ 50 mls/hr 1X PERIOP ONCE INJ ; Start 01/30/22 at 08:00; Stop 01/30/22 at 08:59; Status DC Dexamethasone Sodium Phosphate (Decadron) 4 mg STK-MED ONCE .ROUTE ; Start 01/30/22 at 06:25; Stop 01/30/22 at 06:25; Status DC Ondansetron HCl (Zofran) 4 mg STK-MED ONCE .ROUTE ; Start 01/30/22 at 06:25; Stop 01/30/22 at 06:25; Status DC Propofol (Diprivan) 200 mg STK-MED ONCE IV ; Start 01/30/22 at 06:25; Stop 01/30/22 at 06:25; Status DC Lidocaine HCl (Lidocaine Pf 2% Vial) 5 ml STK-MED ONCE .ROUTE ; Start 01/30/22 at 06:25; Stop 01/30/22 at 06:25; Status DC Tranexamic Acid 100 ml @ As Directed STK-MED ONCE .ROUTE ; Start 01/30/22 at 07:09; Stop 01/30/22 at 07:09; Status DC Fentanyl Citrate (Fentanyl 5ml Vial) 250 mcg STK-MED ONCE .ROUTE ; Start 01/30/22 at 07:30; Stop 01/30/22 at 07:30; Status DC Morphine Sulfate (Morphine Sulfate) 2 mg PRN Q1HR PRN IVP PAIN-SEE COMMENTS Last administered on 01/31/22at 13:59; Start 01/30/22 at 08:15 Fentanyl Citrate (Fentanyl 2ml Vial) 25 mcg PRN Q1HR PRN IVP PAIN, 2nd CHOICE; Start 01/30/22 at 08:15 Diphenhydramine HCl (Benadryl) 25 mg PRN Q6HRS PRN IVP ITCHING; Start 01/30/22 at 08:15 Multivitamins (Thera M Plus) 1 tab DAILY PO Last administered on 02/02/22at 08:51; Start 01/30/22 at 09:00 Senna/Docusate Sodium (Senna Plus) 1 tab DAILY PO Last administered on 02/02/22a t 08:53; Start 01/30/22 at 09:00 Ferrous Sulfate (Feosol) 325 mg BIDWMEALS PO Last administered on 02/02/22at 08:53; Start 01/30/22 at 17:00 Sodium Chloride 1,000 ml @ 40 mls/hr Q24H IV Last administered on 01/30/22at 11:33; Start 01/30/22 at 08:15; Stop 01/31/22 at 20:16; Status DC Prochlorperazine Maleate (Compazine) 10 mg PRN Q4HRS PRN PO Nausea/vomiting, 2nd choice Last administered on 02/01/22at 04:23; Start 01/30/22 at 08:15 Metoclopramide HCl (Reglan Vial) 10 mg PRN Q4HRS PRN IVP NAUSEA/VOMITING, 3rd CHOICE Last administered on 02/01/22at 12:51; Start 01/30/22 at 08:15 Magnesium Hydroxide (Milk Of Magnesia) 2,400 mg 1X PRN PRN PO CONSTIPATION; Start 01/31/22 at 06:00; Stop 02/01/22 at 05:59; Status DC Bisacodyl (Dulcolax Supp) 10 mg 1X PRN PRN LA CONSTIPATION; Start 01/31/22 at 16:00; Stop 02/01/22 at 15:59; Status DC Zolpidem Tartrate (Ambien) 5 mg PRN QHS PRN PO INSOMNIA, MAY REPEAT IN 1HR Last administered on 01/30/22at 21:50; Start 01/30/22 at 08:15 Calcium Carbonate/ Glycine (Tums) 500 mg PRN QID PRN PO INDIGESTION; Start 01/30/22 at 08:15 Sodium Chloride (Normal Saline Flush) 10 ml QSHIFT PRN IV AFTER MEDS AND BLOOD DRAWS; Start 01/30/22 at 08:15 Acetaminophen (Tylenol) 1,000 mg Q6H PO Last administered on 02/02/22at 08:52; Start 01/31/22 at 09:00 Tramadol HCl (Ultram) 50 mg Q6H PO Last administered on 02/02/22at 00:53; Start 01/31/22 at 06:00 Gabapentin (Neurontin) 100 mg Q8HRS PO Last administered on 01/31/22at 22:18; Start 01/31/22 at 06:00 Ondansetron HCl (Zofran) 4 mg Q6HRS IVP Last administered on 01/30/22at 16:43; Start 01/30/22 at 12:00; Stop 01/31/22 at 06:01; Status DC Ondansetron HCl (Zofran Odt) 4 mg Q6HRS PO Last administered on 01/30/22at 21:44; Start 01/30/22 at 12:00; Stop 01/31/22 at 06:01; Status DC Ondansetron HCl (Zofran) 4 mg PRN Q6HRS PRN IVP Nausea/vomiting, 1st choice Last administered on 01/31/22at 07:54; Start 01/31/22 at 12:00 Ondansetron HCl (Zofran Odt) 4 mg PRN Q6HRS PRN PO Nausea/vomiting, 1st choice Last administered on 02/01/22at 12:50; Start 01/31/22 at 12:00 Dextrose (Dextrose 50%-Water Syringe) 12.5 gm PRN Q15MIN PRN IV SEE COMMENTS; Start 01/30/22 at 08:15 Dextrose (Iv Dextrose 5%) 250 ml PRN Q15MIN PRN IV SEE COMMENTS; Start 01/30/22 at 08:15 Cefazolin Sodium/ Dextrose 50 ml @ 100 mls/hr Q6H IV Last administered on 01/31/22at 02:00; Start 01/30/22 at 14:00; Stop 01/31/22 at 02:29; Status DC Acetaminophen/ Hydrocodone Bitart (Lortab 5/325) 2 tab PRN Q4HRS PRN PO MODERATE TO SEVERE PAIN Last administered on 01/31/22at 02:52; Start 01/30/22 at 08:15 Aspirin (Charlie Aspirin) 325 mg DAILYWBKFT PO Last administered on 02/02/22at 08:00; Start 01/31/22 at 08:00 Sevoflurane (Ultane) 90 ml STK-MED ONCE IH ; Start 01/30/22 at 09:10; Stop 01/30/22 at 09:10; Status DC Hydromorphone HCl (Dilaudid) 2 mg STK-MED ONCE .ROUTE ; Start 01/30/22 at 10:11; Stop 01/30/22 at 10:12; Status DC Fentanyl Citrate (Fentanyl 2ml Vial) 25 mcg PRN Q5MIN PRN IVP MILD PAIN 1-3; Start 01/30/22 at 10:30; Stop 01/30/22 at 20:00; Status DC Fentanyl Citrate (Fentanyl 2ml Vial) 50 mcg PRN Q5MIN PRN IVP MODERATE PAIN 4- 6; Start 01/30/22 at 10:30; Stop 01/30/22 at 20:00; Status DC Morphine Sulfate (Morphine Sulfate) 1 mg PRN Q10MIN PRN IVP SEVERE PAIN 7-10; Start 01/30/22 at 10:30; Stop 01/30/22 at 20:00; Status DC Ringer's Solution 1,000 ml @ 30 mls/hr Q24H IV Last administered on 01/30/22at 06:37; Start 01/30/22 at 10:30; Stop 01/30/22 at 22:29; Status DC Hydromorphone HCl (Dilaudid) 0.5 mg PRN Q10MIN PRN IVP SEVERE PAIN 7-10, 2nd CHOICE Last administered on 01/30/22at 11:34; Start 01/30/22 at 10:30; Stop 01/30/22 at 20:00; Status DC Prochlorperazine Edisylate (Compazine) 5 mg PACU PRN PRN IVP NAUSEA, MRX1; S tart 01/30/22 at 10:30; Stop 01/30/22 at 20:00; Status DC Oxycodone HCl (Roxicodone) 5 mg PRN Q4HRS PRN PO MODERATE TO SEVERE PAIN Last administered on 02/01/22at 02:36; Start 01/31/22 at 11:00 Aspirin (Ecotrin) 325 mg BID PO Last administered on 02/02/22at 08:51; Start 01/31/22 at 21:00 Furosemide (Lasix) 20 mg DAILY PO Last administered on 02/02/22at 08:52; Start 02/01/22 at 09:00 Lisinopril (Prinivil) 20 mg DAILY PO Last administered on 02/02/22at 08:54; Start 02/01/22 at 09:00 Polyethylene Glycol (miraLAX PACKET) 17 gm QHS PO Last administered on 02/01/22at 21:35; Start 01/31/22 at 21:00 Albuterol Sulfate (Ventolin Neb Soln) 2.5 mg 1X ONCE NEB ; Start 01/31/22 at 18:00; Stop 01/31/22 at 18:01; Status DC Ketorolac Tromethamine (Toradol 30mg Vial) 30 mg PRN Q6HRS PRN IVP INFLAMMATION Last administered on 02/01/22at 21:36; Start 02/01/22 at 13:15; Stop 02/06/22 at 13:14 Cyclobenzaprine HCl (Flexeril) 10 mg PRN Q6HRS PRN PO MUSCLE SPASMS; Start 02/01/22 at 13:15 Active Scripts Active Reported Aspirin Ec (Aspirin) 325 Mg Tablet.dr 1 Tab PO BID 30 Days Advil Pm Caplet (Ibuprofen/Diphenhydramine Cit) 1 Each Tablet 2 Cap PO HS Cinnamon (Cinnamon Bark) 500 Mg Capsule 1 Cap PO DAILY Vitamin D3 (Cholecalciferol (Vitamin D3)) 25 Mcg Capsule 25 Mcg PO DAILY [place] Berries ([place]) 565 Mg Capsule 565 Mg PO DAILY Apple Cider Vinegar (Cider Vinegar) 600 Mg Capsule 2,400 Mg PO DAILY Turmeric 500 mg Capsule (Turmeric/Turmeric Root Extract) 1 Each Capsule 720 Mg PO DAILY [[place] Tailmushroom] 1,200 Mg PO DAILY Black Elderberry 575 mg Cap (Elderberry Fruit and Flower) 1 Each Capsule 2,000 Mg PO DAILY Ferrous Sulfate 325 Mg Tablet 325 Mg PO DAILY Chromium Picolinate 1,000 Mcg Tablet 1,000 Mcg PO DAILY Multiple Vitamins (Multivitamin) 1 Each Tablet 1 Each PO DAILY B Complex (Vitamin B Complex) 1 Each Tablet 1 Each PO DAILY Furosemide 20 Mg Tablet 20 Mg PO DAILY Lisinopril 20 Mg Tablet 20 Mg PO DAILY Allergies Allergies: Coded Allergies: adhesive (Verified Allergy, Intermediate, Rash, 01/30/22) bee venom protein (honey bee) (Verified Allergy, Intermediate, 01/30/22) nickel (Verified Adverse Reaction, Intermediate, Unknown, 01/30/22) oxycodone (Verified Adverse Reaction, Intermediate, Nausea and Vomiting, 01/30/22) propoxyphene (Verified Adverse Reaction, Intermediate, Nausea and Vomiting, 01/30/22) silver (Verified Adverse Reaction, Intermediate, 01/30/22) ROS General: No: Chills, Night Sweats, Fatigue, Malaise, Appetite, Other PSYCHOLOGICAL ROS: No: Anxiety, Behavioral Disorder, Concentration difficultie, Decreased libido, Depression, Disorientation, Hallucinations, Hostility, Irritablity, Memory difficulties, Mood Swings, Obsessive thoughts, Physical abuse, Sexual abuse, Sleep disturbances, Suicidal ideation, Other Eyes: No Blurry vision, No Decreased vision, No Double vision, No Dry eyes, No Excessive tearing, No Eye Pain, No Itchy Eyes, No Loss of vision, No Photophobia, No Scotomata, No Uses contacts, No Uses glasses, No Other HEENT: No: Heacaches, Visual Changes, Hearing change, Nasal congestion, Nasal discharge, Oral lesions, Sinus pain, Sore Throat, Epistaxis, Sneezing, Snoring, Tinnitus, Vertigo, Vocal changes, Other ALLERGY AND IMMUNOLOGY: No: Hives, Insect Bite Sensitivity, Itchy/Watery Eyes, Nasal Congestion, Post Nasal Drip, Seasonal Allergies, Other Hematological and Lymphatic: No: Bleeding Problems, Blood Clots, Blood Transfusions, Brusing, Night Sweats, Pallor, Swollen Lymph Nodes, Other ENDOCRINE: No: Breast Changes, Galactorrhea, Hair Pattern Changes, Hot Flashes, Malaise/lethargy, Mood Swings, Palpitations, Polydipsia/polyuria, Skin Changes, Temperature Intolerance, Unexpected Weight Changes, Other Breast: No New/Changing Breast Lumps, No Nipple changes, No Nipple discharge, No Other Respiratory: No: Cough, Hemoptysis, Orthopnea, Pleuritic Pain, Shortness of breath, SOB with excertion, Sputum Changes, Stridor, Tachypnea, Wheezing, Other Cardiovascular: No Chest Pain, No Palpitations, No Orthopnea, No Paroxysmal Noc. Dyspnea, No Edema, No Lt Headedness, No Other Gastrointestinal: No Nausea, No Vomiting, No Abdominal Pain, No Diarrhea, No Constipation, No Melena, No Hematochezia, No Other Genitourinary: No Dysuria, No Frequency, No Incontinence, No Hematuria, No Retention, No Discharge, No Urgency, No Pain, No Flank Pain, No Other, No , No , No , No , No , No , No Musculoskeletal: Yes Joint Pain; No Gait Disturbance, No Joint Stiffness, No Joint Swelling, No Muscle Pain, No Muscular Weakness, No Pain In:, No Swelling In:, No Other Neurological: No Behavorial Changes, No Bowel/Bladder ControlChng, No Confusion, No Dizziness, No Gait Disturbance, No Headaches, No Impaired Coord/balance, No Memory Loss, No Numbness/Tingling, No Seizures, No Speech Problems, No Tremors, No Visual Changes, No Weakness, No Other Skin: No Dry Skin, No Eczema, No Hair Changes, No Lumps, No Mole Changes, No Mottling, No Nail Changes, No Pruritus, No Rash, No Skin Lesion Changes, No Other, No Acne Physical Exam General: Alert, Oriented X3, Cooperative, mild distress HEENT: Atraumatic, PERRLA, EOMI, Mucous membr. moist/pink Lungs: Clear to auscultation, Normal air movement Heart: Regular rate, Normal S1, Normal S2, No murmurs Abdomen: Normal bowel sounds, Soft, No tenderness, No hepatosplenomegaly, No masses Extremities: No clubbing, No cyanosis, No edema, Normal pulses, No tenderness/swelling Skin: No rashes, No breakdown, Other (Right knee dressing intact) Psych/Mental Status: Mental status NL, Mood NL MUSCULOSKELETAL: No joint tenderness, No deformity, No muscular tenderness noted, Full range of motion without pain Vitals VITALS Vital Signs Date Time Temp Pulse Resp B/P (MAP) Pulse Ox O2 Delivery O2 Flow Rate FiO2 02/02/22 08:54 66 134/64 02/02/22 07:00 98.1 18 90 Room Air 98.1 02/01/22 08:00 2.0 Labs Labs Laboratory Tests Test 02/01/22 06:40 02/02/22 05:05 Hemoglobin 12.4 g/dL (12.0-15.5) 11.8 g/dL (12.0-15.5) Hematocrit 36.8 % (36.0-47.0) 34.7 % (36.0-47.0) Mean Corpuscular Hemoglobin Concent 34 g/dL (31-37) 34 g/dL (31-37) Laboratory Tests Test 02/02/22 05:05 Hemoglobin 11.8 g/dL (12.0-15.5) Hematocrit 34.7 % (36.0-47.0) Mean Corpuscular Hemoglobin Concent 34 g/dL (31-37) Assessment/Plan Assessment/Plan Right knee osteoarthritis -status post right knee total arthroplasty with no complications. Has incentive spirometer outpatient physical therapy ordered. Tylenol and oxycodone. For pain of postoperative follow-up with orthopedic surgery Anemia -mild likely delusional postoperatively. HTN -continue home lisinopril Morbid obesity -counseled on lifestyle modification FEN - Regular diet PPX - ASA FULL CODE Dispo - home with home health CHINA CHU MD Feb 02, 2022 11:41
[2022-02-02] MEDS ORDERED: OXYC5TAB4 PO (11:50)
--- NOTE | 2022-02-02 11:57 | SNU/HH DC ---
DISCHARGE WITH HOME HEALTH DISCHARGE INFORMATION: Discharge Date: Feb 02, 2022 Final Diagnosis: Right knee osteoarthritis Condition on Discharge: Stable CODE STATUS: Code Status: Full HOME HEALTH: Face to Face: I certify this patient is under my care and that I, or a nurse practitioner or physician's mechanic assistant working with me, had a face to face encounter that meets the physician face to face encounter requirements with this patient on 02/02/2022. Medical Complications: DJD, HTN Retirement For: Assess & Educate Safety, Assess/Skilled Observatio, Medication Management, Pain Management RN For Eval/Treatment: Yes Physical Therapy For: Evalulation/Treatment Pt Meets Homebound Status: Unsteady balance w/ amb, POST DISCHARGE ORDERS: Activity Instructions for Disc: Resume previous activity Weight Bearing Status after Di: Full weight bearing Bathing Instructions: Shower-keep dressing dry DIET AFTER DISCHARGE: Regular Wound/Incision Care: Ice to area for comfort, Keep wound/cast CDI, Keep wound elevated CHECKS AFTER DISCHARGE: Checks after discharge: Check blood press - daily CERTIFICATION STATEMENT: Certification Statement: Certification Statement: Based on the above finding, I certify that this patient is confined to the home and needs intermittent snf care, physical therapy and/or speech therapy, or continues to need occupational therapy.~ This patient is under my care, and I have initiated the establishment of the plan of care.~ This patient will be followed by myself or a community physician who will periodically review the plan of care. Home Meds Active Scripts Oxycodone Hcl (OXYCODONE HCL IMMED.RELEASE ) 5 Mg Tablet, 5 MG PO PRN Q8HRS PRN for MODERATE TO SEVERE PAIN for 5 Days, #15 TAB Prov:CHINA CHU MD 02/02/22 Reported Medications Aspirin (ASPIRIN EC) 325 Mg Tablet., 1 TAB PO BID for blood thinner for 30 Days, #60 TAB 0 Refills 01/31/22 Ibuprofen/Diphenhydramine Cit (ADVIL PM CAPLET) 1 Each Tablet, 2 CAP PO HS for SLEEP AID, TAB 01/18/22 Cinnamon Bark (CINNAMON) 500 Mg Capsule, 1 CAP PO DAILY for SUPPLEMENT, CAP 01/18/22 Cholecalciferol (Vitamin D3) (Vitamin D3) 25 Mcg Capsule, 25 MCG PO DAILY for SUPPLEMENT, CAP 01/18/22 [place] (HAWTHORN BERRIES) 565 Mg Capsule, 565 MG PO DAILY for SUPPLEMENT, CAP 01/18/22 Cider Vinegar (APPLE CIDER VINEGAR) 600 Mg Capsule, 2400 MG PO DAILY for SUPPLEMENT, CAP 01/18/22 Turmeric/Turmeric Root Extract (Turmeric 500 mg Capsule) 1 Each Capsule, 720 MG PO DAILY for SUPPLEMENT, CAP 01/18/22 [[place] Tailmushroom] No Conflict Check, 1200 MG PO DAILY for SUPPLEMENT 01/18/22 Elderberry Fruit and Flower (Black Elderberry 575 mg Cap) 1 Each Capsule, 2000 MG PO DAILY for SUPPLEMENT, CAP 01/18/22 Ferrous Sulfate (FERROUS SULFATE) 325 Mg Tablet, 325 MG PO DAILY for SUPPLEMENT, TAB 01/18/22 Chromium Picolinate (CHROMIUM PICOLINATE) 1,000 Mcg Tablet, 1000 MCG PO DAILY for SUPPLEMENT, TAB 01/18/22 Multivitamin (MULTIPLE VITAMINS) 1 Each Tablet, 1 EACH PO DAILY for SUPPLEMENT, TAB 01/18/22 Vitamin B Complex (B COMPLEX) 1 Each Tablet, 1 EACH PO DAILY for SUPPLEMENT, TAB 01/18/22 Furosemide (FUROSEMIDE) 20 Mg Tablet, 20 MG PO DAILY for DIURETIC, TAB 01/18/22 Lisinopril (LISINOPRIL) 20 Mg Tablet, 20 MG PO DAILY for FOR HYPERTENSION, #30 TAB 0 Refills 01/18/22 CHINA CHU MD Feb 02, 2022 11:57
[2022-02-02] MEDS: oxyCODONE IR 5 MG TABLET PO PRN (15:07)
--- NOTE | 2022-02-02 15:30 | NUR ---
Discharge instructions given. Answered questions and concerns. Verbalized understanding. Pain med given. Pt discharged home with home health. Escorted out by w/c accompanied by spouse.
--- NOTE | 2022-02-03 09:30 | PN ---
DATE: 02/01/2022 She is here today, postoperative day #2 for a total knee arthroplasty. She is doing very well at this point. Incision is healing. There is no excessive drainage. There were no signs or symptoms of infection or DVT about the knee region. No redness. She did spike a fever of 102. Subsequently, was given a breathing treatment under my direction. She did improve, did have a small elevation in temperature again this morning of 100; however, nothing significant is noted about the knee itself, appears to be respiratory in nature. There were no signs or symptoms of infection, no signs or symptoms of DVT. Distal neurovascular status is fully intact. Range of motion is 0 to about 75, almost 80 degrees of flexion today. She is having some difficulty with pain control secondary to the fact that she is either allergic or very nauseous whenever she takes any type of pain medication. Therefore, we are working with the use of Toradol as well as the possibility of trying Dilaudid if that all fails. We will continue to get this under control as far as her pain control and then she will be discharged when that is appropriately taken care of. RAMONITA/MATTHEW/TONI DR: Mary TID: [id number]
--- NOTE | 2022-02-13 16:37 | PDOC3 ---
Discharge Summary Visit Information Date of Admission: Jan 30, 2022 Date of Discharge: Feb 02, 2022 Admitting Diagnosis: Right knee osteoarthritis Final Diagnosis Right knee osteoarthritis Brief Hospital Course Allergies Allergies Coded Allergies Type Severity Reaction Last Updated Verified adhesive Allergy Intermediate Rash 01/30/22 Yes bee venom protein (honey bee) Allergy Intermediate 01/30/22 Yes nickel Adverse Reaction Intermediate Unknown 01/30/22 Yes oxycodone Adverse Reaction Intermediate Nausea and Vomiting 01/30/22 Yes propoxyphene Adverse Reaction Intermediate Nausea and Vomiting 01/30/22 Yes silver Adverse Reaction Intermediate 01/30/22 Yes Brief Hospital Course Ms Cedeno is a 66yo female with PMHx HTN, nephrolithiasis who was admitted for elective right total knee arthroplasty on 01/30/2022 for progressive degenerative osteoarthritis failed outpatient injections ice elevation anti-inflammatories and therapy. Postoperatively she did have pain but had a lot of nausea and vomiting related to opioids and was responsive to Toradol. For her high blood pressure she takes lisinopril and furosemide. No numbness or tingling no significant swelling. No shortness of breath or chest pain. She did have difficulty getting into the car with physical therapy and has been recommended to have home health prior to going to outpatient rehab due to this. Labs on my review with hemoglobin 13.2 down to 11.8 postoperatively negative COV ID-19 rapid antigen Knee radiograph on interpretation shows a right total knee arthroplasty without any local complications some subcutaneous intra-articular air expected postoperatively. Seen and examined in consultation on 02/02/2022 due to gait instability decision was made to go home with home health with likely transition to outpatient physical therapy the next 2 weeks and have orthopedic surgery outpatient follow- up prior to that. Thromboprophylaxis with aspirin. Consults: Internal medicine Right knee osteoarthritis -status post right knee total arthroplasty with no complications. Has incentive spirometer outpatient physical therapy ordered. Tylenol and oxycodone. For pain of postoperative follow-up with orthopedic surgery Anemia -mild likely dilutional postoperatively. HTN -continue home lisinopril Morbid obesity -counseled on lifestyle modification Nausea and vomiting -likely opioid related. Required continued inpatient care for 2 additional days. Greater than 30 minutes spent on discharge home with home health Discharge Information Condition at Discharge: Improved Follow Up: Weeks (1) Disposition/Orders: D/C to Home w/ HH Scheduled Aspirin (Aspirin Ec) 325 Mg Tablet.dr, 1 TAB PO BID for blood thinner for 30 Days, #60 Ref 0 (Reported) Entered as Reported by: SUGEY CALDERON on 01/31/221634 Last Action: Continued on 01/31/221635 by SUGEY CALDERON Cholecalciferol (Vitamin D3) (Vitamin D3) 25 Mcg Capsule, 25 MCG PO DAILY for SUPPLEMENT, (Reported) Entered as Reported by: AVERY NOGUEIRA on 01/18/221045 Last Action: Reviewed on 01/30/221246 by ORI KEARNEY LPN Chromium Picolinate (Chromium Picolinate) 1,000 Mcg Tablet, 1,000 MCG PO DAILY for SUPPLEMENT, (Reported) Entered as Reported by: AVERY NOGUEIRA on 01/18/221045 Last Action: Reviewed on 01/30/221246 by ORI KEARNEY LPN Cider Vinegar (Apple Cider Vinegar) 600 Mg Capsule, 2,400 MG PO DAILY for SUPPLEMENT, (Reported) Entered as Reported by: AVERY NOGUEIRA on 01/18/221045 Last Action: Reviewed on 01/30/221246 by ORI KEARNEY LPN Cinnamon Bark (Cinnamon) 500 Mg Capsule, 1 CAP PO DAILY for SUPPLEMENT, (Reported) Entered as Reported by: AVERY NOGUEIRA on 01/18/221045 Last Action: Reviewed on 01/30/221246 by ORI KEARNEY LPN Elderberry Fruit and Flower (Black Elderberry 575 mg Cap) 1 Each Capsule, 2,000 MG PO DAILY for SUPPLEMENT, (Reported) Entered as Reported by: AVERY NOGUEIRA on 01/18/221045 Last Action: Reviewed on 01/30/221246 by ORI KEARNEY LPN Ferrous Sulfate (Ferrous Sulfate) 325 Mg Tablet, 325 MG PO DAILY for SUPPLEMENT, (Reported) Entered as Reported by: AVERY NOGUEIRA on 01/18/221045 Last Action: Reviewed on 01/30/221246 by ORI KEARNEY LPN Furosemide (Furosemide) 20 Mg Tablet, 20 MG PO DAILY for DIURETIC, (Reported) Entered as Reported by: AVERY NOGUEIRA on 01/18/221045 Last Taken: Unknown Dose on 01/28/22 Last Action: Continued on 01/31/221635 by SUGEY CALDERON Petrolia (Petrolia Berries) 565 Mg Capsule, 565 MG PO DAILY for SUPPLEMENT, (Reported) Entered as Reported by: AVERY NOGUEIRA on 01/18/221045 Last Action: Reviewed on 01/30/221246 by ORI KEARNEY LPN Ibuprofen/Diphenhydramine Cit (Advil Pm Caplet) 1 Each Tablet, 2 CAP PO HS for SLEEP AID, (Reported) Entered as Reported by: AVERY NOGUEIRA on 01/18/221045 Last Action: Reviewed on 01/30/221246 by ORI KEARNEY LPN Lisinopril (Lisinopril) 20 Mg Tablet, 20 MG PO DAILY for FOR HYPERTENSION, #30 Ref 0 (Reported) Entered as Reported by: AVERY NOGUEIRA on 01/18/221045 Last Taken: Unknown Dose on 01/28/22 Last Action: Continued on 01/31/221635 by SUGEY CALDERON Multivitamin (Multiple Vitamins) 1 Each Tablet, 1 EACH PO DAILY for SUPPLEMENT, (Reported) Entered as Reported by: AVERY NOGUEIRA on 01/18/221045 Last Action: Reviewed on 01/30/221246 by ORI KEARNEY LPN Turmeric/Turmeric Root Extract (Turmeric 500 mg Capsule) 1 Each Capsule, 720 MG PO DAILY for SUPPLEMENT, (Reported) Entered as Reported by: AVERY NOGUEIRA on 01/18/221045 Last Action: Reviewed on 01/30/221246 by ORI KEARNEY LPN Vitamin B Complex (B Complex) 1 Each Tablet, 1 EACH PO DAILY for SUPPLEMENT, (Reported) Entered as Reported by: AVERY NOGUEIRA on 01/18/221045 Last Action: Reviewed on 01/30/221246 by ORI KEARNEY LPN [[place] Tailmushroom] , 1,200 MG PO DAILY for SUPPLEMENT, (Reported) Entered as Reported by: AVERY NOGUEIRA on 01/18/221045 Last Action: Reviewed on 01/30/221246 by ORI KEARNEY LPN Scheduled PRN Oxycodone Hcl (Oxycodone Hcl Immed.release ) 5 Mg Tablet, 5 MG PO PRN Q8HRS PRN for MODERATE TO SEVERE PAIN for 5 Days, #15 Prescribed by: CHINA CHU MD on 02/02/22 1151 Justicifation of Admission Dx: Justifications for Admission: Justification of Admission Dx: Yes CHINA CHU MD Feb 13, 2022 16:37
== END 2022-02-02 15:30 | disposition home health service (06) | DRG 470 ==
LOC: SURG 05:58 → 4 NORTH 08:04
PROVIDERS: ADMIT Orthopaedic Surgery; ATTEND Orthopaedic Surgery
PROC: 0SRC0J9 Replacement of Right Knee Joint with Synthetic Substitute, Cemented, Open Approach (ICD-10-PCS; principal; 2022-01-30 08:00)
DX: M17.11 Unilateral primary osteoarthritis, right knee (principal); Z68.41 Body mass index [BMI] 40.0-44.9, adult; E78.5 Hyperlipidemia, unspecified; E66.01 Morbid (severe) obesity due to excess calories; I10 Essential (primary) hypertension; I25.10 Atherosclerotic heart disease of native coronary artery without angina pectoris; Z20.822 Contact with and (suspected) exposure to COVID-19; Z82.49 Family history of ischemic heart disease and other diseases of the circulatory system; Z82.5 Family history of asthma and other chronic lower respiratory diseases; Z87.442 Personal history of urinary calculi; Z88.8 Allergy status to other drugs, medicaments and biological substances; D64.9 Anemia, unspecified
CPT/HCPCS: 36415; 73560; 85014; 85018; 86850; 86900; 86901; 88305; 88311; 94640; A4213; A4223; A4930; A6450; C1776; J0171; J0690; J1100; J1170; J1885; J2270; J2405; J2704; J2765; J2795; J3010; J7030; J7120; U0003; 97110-GP; 97116-GP; 97530-GP; 97535-GO; G0378; Q0164